=== PATIENT | female | born 1960 | race Caucasian/White ===

== ENCOUNTER → 2023-08-30 06:50 | Outpatient (REF) | payer BC, SELFPAY ==
[2023-08-30 09:59] LABS: % Basophils 0.5 % (0-2); % Eosinophils 3.5 % (0-6); % Immature Granulocytes 0.3 % (0-0.5); % Neutrophils 53.7 % (42.2-75.2); Absolute Eosinophils 0.2 10^3/uL (0-0.7); Absolute Monocytes 0.4 10^3/uL (0.1-0.6); Absolute Neutrophils 3.1 10^3/uL (1.4-6.5); Hemoglobin 14.5 g/dL (12.0-16.0); Mean Corpuscular Hgb 28.8 pg (27.0-31.0); Mean Corpuscular Volume 87.3 fL (81.0-99.0); Mean Platelet Volume 10.4 fL (7.4-10.4); Nucleated Red Blood Cells % 0 %; Platelet Count 256 10^3/uL (130-400); Red Blood Cell Count 5.04 10^6/uL (4.20-5.40); Red Cell Dist. Width 13.2 % (11.5-14.5); White Blood Cell Count 5.7 10^3/uL (4.8-10.8)
[2023-08-30 10:29] LABS: ALT (SGPT) 36 U/L (0-35); AST (SGOT) 38 U/L (14-36); Alkaline Phosphatase 94 U/L (38-126); Blood Urea Nitrogen 12 mg/dl (7-17); Calcium 9.3 mg/dl (8.4-10.2); Carbon Dioxide 29 mmol/L (22-30); Chloride 104 mmol/L (98-107); Glucose 115 mg/dl (70-99); HDL Cholesterol 56 mg/dl; LDL Cholesterol, Calculated 91 mg/dl; Potassium 4.3 mmol/L (3.5-5.1); Sodium 141 mmol/L (135-145); Total Bilirubin 0.7 mg/dl (0.2-1.3); Total Cholesterol 159 mg/dl (50-199); Total Protein 7.3 g/dl (6.3-8.2); Triglyceride 63 mg/dl (10-149); Very Low Density Lipoprotein 12 mg/dl (0-30); eGFR > 60.00
[2023-08-30 10:45] LABS: Free T4 1.79 ng/dl (0.78-2.19)
[2023-08-30 10:59] LABS: TSH 9.42 uIU/ml (0.47-4.68)
[2023-08-30 13:11] LABS: Glycohemoglobin (HgbA1c) 6.3 % (4.0-5.6)
== END ==
LOC: HWLAB 06:50
PROVIDERS: ATTENDING PHYSICIAN Physician Assistant Medical
DX: E03.8 Other specified hypothyroidism (principal); E04.1 Nontoxic single thyroid nodule; R73.01 Impaired fasting glucose; E66.01 Morbid (severe) obesity due to excess calories; Z00.01 Encounter for general adult medical examination with abnormal findings
CPT/HCPCS: 36415; 80053; 80061; 83036; 84439; 84443; 85025

== ENCOUNTER → 2023-11-19 06:38 | Outpatient (REF) | payer BC, SELFPAY ==
[2023-11-19 10:18] LABS: Free T4 2.14 ng/dl (0.78-2.19)
[2023-11-19 10:32] LABS: TSH 2.19 uIU/ml (0.47-4.68)
== END ==
LOC: HWLAB 06:38
PROVIDERS: ATTENDING PHYSICIAN Physician Assistant Medical
DX: E03.8 Other specified hypothyroidism (principal)
CPT/HCPCS: 36415; 84439; 84443

== ENCOUNTER 2024-08-25 20:25 | Inpatient (IN) | payer BC, SELFPAY ==
[2024-08-25] VITALS (19 sets, daily range): BP systolic 92–178; BP diastolic 61–124; PULSE 2–132; BMI 65.9
[2024-08-25] MEDS: DECADRON 8 MG IV (17:08)
[2024-08-25] MEDS: DUONEB 3 ML INH ×3 (17:09→22:01)
[2024-08-25 17:24] LABS: Venous Blood Gas B.E. -10.5 mmol/L (-4 to +4); Venous Blood Gas HCO3 21.3 mmol/L (22-27); Venous Blood Gas O2 Sat % 77.5 %; Venous Blood Gas pO2 58 mmHg (30-50)
[2024-08-25 17:25] LABS: % Basophils 0.6 % (0-2); % Eosinophils 1.7 % (0-6); % Immature Granulocytes 0.4 % (0-0.5); % Lymphocytes 48.2 % (20.5-51.1); % Monocytes 7.4 % (1.7-9.3); % Neutrophils 41.7 % (42.2-75.2); Absolute Basophils 0.1 10^3/uL (0-0.2); Absolute Eosinophils 0.2 10^3/uL (0-0.7); Absolute Lymphocytes 4.6 10^3/uL (1.2-3.4); Absolute Monocytes 0.7 10^3/uL (0.1-0.6); Hematocrit 53.9 % (37.0-47.0); Hemoglobin 17.1 g/dL (12.0-16.0); Mean Corp Hgb Conc. 31.7 g/dL (33.0-37.0); Mean Corpuscular Hgb 29.1 pg (27.0-31.0); Mean Corpuscular Volume 91.8 fL (81.0-99.0); Nucleated Red Blood Cells % 0 %; Platelet Count 290 10^3/uL (130-400); Red Blood Cell Count 5.87 10^6/uL (4.20-5.40); Red Cell Dist. Width 12.6 % (11.5-14.5); White Blood Cell Count 9.5 10^3/uL (4.8-10.8)
[2024-08-25 17:27] LABS: Venous Blood Gas pCO2 72 mmHg (35-48); Venous Blood Gas pH 7.08 (7.32-7.43)
[2024-08-25] MEDS: CARDIZEM 5 MG IV (17:30)
[2024-08-25 17:32] LABS: COVID-19 Antigen Negative (Negative)
[2024-08-25 17:34] LABS: ALT (SGPT) 37 U/L (0-35); AST (SGOT) 41 U/L (14-36); Alkaline Phosphatase 96 U/L (38-126); Blood Urea Nitrogen 10 mg/dl (7-17); Calcium 9.8 mg/dl (8.4-10.2); Carbon Dioxide 23 mmol/L (22-30); Chloride 102 mmol/L (98-107); Estimated Creatinine Clearance 98 ml/min; Glucose 203 mg/dl (70-99); Potassium 4.3 mmol/L (3.5-5.1); Sodium 141 mmol/L (135-145); Total Bilirubin 0.8 mg/dl (0.2-1.3); eGFR > 60.00
[2024-08-25 17:45] LABS: Troponin I < 0.012 ng/ml
--- NOTE | 2024-08-25 17:46 | ED.GENMED ---
History of Present Illness
General
Chief Complaint: Breathing Problem
Time Seen by Provider: 08/25/24 17:22
History of Present Illness
History of Present Illness:
Patient is a 64-year-old woman with history of asthma presenting to the emergency department respiratory distress. Patient states for the past 4 days she has had chills cough with deep breathing. Took her inhaler without relief. No history of
admissions for asthma. Denies any chest pain. No history of blood clots. No leg swelling. No hemoptysis.
Phy Exam
Physical Exam
Physical Exam:
GENERAL: Severe respiratory distress, cyanotic
HEENT: normocephalic, extraocular movements intact, moist oral mucosa
NECK: normal inspection
RESPIRATORY: Severe respiratory distress, audible wheezing, increased work of breathing, coarse breath sounds right worse than left
CARDIOVASCULAR: Tachycardic rate
ABDOMEN/: soft, non-distended, non-tender to palpation, no rebound or guarding
EXTREMITIES: non-tender, no edema/swelling
NEUROLOGIC: awake and alert, moves all extremities
SKIN: warm
Scores
Heart Failure Risk
Heart Failure Risk Score: Not Applicable
Sepsis
Sepsis Screening
Sepsis Assessment: Severe Sepsis
Sepsis Screening: Lactate >2mmol/L and Need for mechanical ventilation or BiPAP
Sepsis Screen
Sepsis Screen: Severe Sepsis
Date: 08/25/24
Time: 18:50
Course
Orders/Labs/Results
Orders:
Orders
08/25/24 17:00
Electrocardiogram (*1) Urgent
Reason for Study: Shortness of Breath
08/25/24 17:01
EKG- Treatment ONCE
08/25/24 17:03
Dexamethasone Sod Phosphate [Decadron] 8 mg .ROUTE .STK-MED ONE
08/25/24 17:04
Portable Chest Xray [CR Chest Portable - 1 View] Urgent
Comment:
Reason For Exam: resp distress
Reason Study Needs to be Portable: Patient Unstable
08/25/24 17:07
COVID-19 Antigen Urgent
Source: Nasal Swab
Complete Blood Count/With Diff Urgent
Comprehensive Metabolic Panel Urgent
NT-proBNP Urgent
Comment: ADD ON
Troponin I Urgent
Venous Blood Gas Urgent
%Oxygen/Room Air: 100
Comment: 15 L
Influenza A+B Rapid Molecular Urgent
LETTY Source: Nasal Swab
Specimen Description:
08/25/24 17:08
Dexamethasone Sod Phosphate [Decadron] 8 mg IV NOW STA
08/25/24 17:09
Ipratropium/Albuterol Sulfate [Duoneb] 3 ml INH R NOW ONE
08/25/24 17:10
Ipratropium/Albuterol Sulfate [Duoneb] 3 ml INH R NOW ONE
08/25/24 17:24
Diltiazem HCl [Cardizem] 10 mg IV NOW STA
08/25/24 17:30
Diltiazem HCl [Cardizem] 5 mg IV NOW STA
08/25/24 17:35
Lactic Acid Urgent
08/25/24 17:42
Add On- LAB Urgent
Tests Added?: bnp
08/25/24 17:52
Venous Blood Gas Stat
%Oxygen/Room Air: 100
Comment: Bipap
08/25/24 18:36
Venous Blood Gas Stat
%Oxygen/Room Air: 100
Comment: BiPap
08/25/24 18:55
Azithromycin 500 mg/250 ml [Zithromax Infusion] 500 mg in 250 ml IV NOW
CefTRIAXone [Rocephin] 2,000 mg IV NOW STA
08/25/24 19:09
0.9% Sodium Chloride 500 ml [Nss] 500 ml IV BOLUS
Abnormal Lab Results
08/25/24 08/25/24 08/25/24
17:07 17:35 17:52
RBC 5.87 H 10^6/uL
(4.20-5.40)
Hgb 17.1 H g/dL
(12.0-16.0)
Hct 53.9 H %
(37.0-47.0)
MCHC 31.7 L g/dL
(33.0-37.0)
Absolute Lymphs (auto) 4.6 H 10^3/uL
(1.2-3.4)
Absolute Monos (auto) 0.7 H 10^3/uL
(0.1-0.6)
Neutrophils % 41.7 L %
(42.2-75.2)
VBG pH 7.08 L* 7.15 L*
(7.32-7.43) (7.32-7.43)
VBG pCO2 72 H* mmHg 73 H* mmHg
(35-48) (35-48)
VBG pO2 58 H mmHg 57 H mmHg
(30-50) (30-50)
VBG HCO3 21.3 L mmol/L
(22-27)
Glucose 203 H mg/dl
(70-99)
Lactic Acid 3.9 H mmol/L
(0.7-2.0)
AST 41 H U/L
(14-36)
ALT 37 H U/L
(0-35)
Total Protein 9.0 H g/dl
(6.3-8.2)
08/25/24
18:36
RBC
Hgb
Hct
MCHC
Absolute Lymphs (auto)
Absolute Monos (auto)
Neutrophils %
VBG pH 7.21 L
(7.32-7.43)
VBG pCO2 61 H mmHg
(35-48)
VBG pO2 60 H mmHg
(30-50)
VBG HCO3
Glucose
Lactic Acid
AST
ALT
Total Protein
08/25/24 17:07
08/25/24 17:07
Vital Signs
Initial and Last Documented VS:
Initial Vital Signs
Pulse Resp BP Pulse Ox
145 35 159/111 100
08/25/24 17:02 08/25/24 17:02 08/25/24 17:02 08/25/24 17:02
Last Documented Vital Signs
Temp Pulse Resp BP Pulse Ox
99.5 F 143 28 118/88 98
08/25/24 17:11 08/25/24 18:18 08/25/24 18:20 08/25/24 18:18 08/25/24 18:20
MDM/Problems Addressed
Differential Diagnosis Includes:
Patient is a 64-year-old woman history of asthma presenting to the emergency department with severe respiratory distress. On arrival patient was cyanotic in severe respiratory distress with oxygen saturation in the 60s on room air. Patient
immediately brought back to room 41 and placed on nonrebreather with nebulizers treatment. Will give steroids as well. Stat portable chest x-ray completed per my interpretation could be interstitial pneumonia versus pulmonary edema though less
likely as patient has been having infectious signs or symptoms for the past few days. In addition patient with a tachycardic rate in the 150s. I did obtain EKG per my interpretation was wide-complex could be atrial fibrillation with block versus
ventricular tachycardia. I did discuss with Dr. Winkler from cardiology who states that it is likely SVT with block and to try diltiazem. I did slow down patient's heart rate with 5 mg IV diltiazem to the 120s. Repeat EKG consistent with left bundle
branch and sinus tach. Will hold off on further rate control as patient could be septic as well from the pneumonia. Will give small amount of fluids to see how patient responds.
Received a critical call regarding patient's VBG. She is in respiratory acidosis. Will trial BiPAP. However patient is becoming slightly more tired. She is a full code. Will recheck VBG and patient's mental status to see if we should go
towards intubation or keep patient on BiPAP. Patient is white count is normal. Will give antibiotics for pneumonia.
615p: Repeat VBG does show slight improvement in her pH though CO2 remains the same. She is on BiPAP settings 20/5 and is pulling more than 500 on tidal volume.. On reassessment patient is resting with her eyes closed though awakes to verbal.
States that she feels better. Will obtain 1 more VBG to make sure patient is improving though clinically patient appears to be improving.
630p: On reassessment patient continues to pull great tidal volumes. She is resting comfortably. Her respiratory rate has decreased.
645p: Patient appears much more comfortable. She is able to speak in full sentences. She states her breathing has improved. Repeat VBG does show significant improvement.
718p: On reevaluation patient is much more alert. Her heart rate has also improved. She has been improving for the last hour so will discuss with the hospitalist for admission.
*Critical Care Note
Total Time (30-74mins, 75-104mins- exclusive of procedures): 55
comment:
Critical care statement: A total of 55 minutes of critical care time was provided for this patient. This includes management of unstable vital signs, evaluation of the patient at bedside, reviewing the patient's pertinent medical records, ordering
and reviewing studies, arranging urgent treatment with development of a management plan, evaluating patient's response to treatment, frequent reassessment, and discussion with consultants. This time was separate from time utilized to perform the
aforementioned documented procedures.
ED Attending Note
-
Portions of this chart may have been created with voice recognition software.� Occasional wrong word or��sound alike� substitutions may have occurred due to the inherent limitations of voice recognition software.
Discharge Plan
Departure
Patient Disposition: Admit
Date of Disposition: 08/25/24
Time of Disposition: 19:18
Presentation/result/management discussed w/ accepting MD/DO: Hospitalist
Discharge Problem:
Pneumonia, Asthma exacerbation
Prescriptions:
No Action
lisinopril 30 mg Tablet
30 mg PO DAILY
levothyroxine 200 mcg Tablet
200 mcg PO DAILY
Referrals:
UNKNOWN - PT DOES,NOT KNOW [Unknown Provider] -
Interventions
Interventions:
*Risk Screen - Suicide Last Done: 08/25/24 17:02
*General Assessment Last Done: 08/25/24 17:02
*Neglect/Abuse Screening Last Done: 08/25/24 17:02
*ED- Fall Risk Assessment Last Done: 08/25/24 17:11
*ED COVID-19 Vaccine History Last Done: 08/25/24 17:22
ED- Cardiac Assessment Last Done: 08/25/24 17:15
ED- Pulmonary Assessment Last Done: 08/25/24 17:15
Discharge Date and Time
Print Language: KOSOVAN
[2024-08-25 17:54] LABS: Lactic Acid 3.9 mmol/L (0.7-2.0)
[2024-08-25 18:08] LABS: Venous Blood Gas B.E. -5.6 mmol/L (-4 to +4); Venous Blood Gas HCO3 25.4 mmol/L (22-27); Venous Blood Gas O2 Sat % 81.5 %; Venous Blood Gas pO2 57 mmHg (30-50)
[2024-08-25 18:08] LABS: NT-proBNP 30.7 pg/ml
[2024-08-25 18:10] LABS: Venous Blood Gas pCO2 73 mmHg (35-48); Venous Blood Gas pH 7.15 (7.32-7.43)
[2024-08-25 18:43] LABS: Venous Blood Gas pCO2 61 mmHg (35-48)
[2024-08-25 18:48] LABS: Venous Blood Gas B.E. -4.5 mmol/L (-4 to +4); Venous Blood Gas HCO3 24.4 mmol/L (22-27); Venous Blood Gas pH 7.21 (7.32-7.43); Venous Blood Gas pO2 60 mmHg (30-50)
[2024-08-25 18:49] LABS: Venous Blood Gas O2 Sat % 84.3 %
[2024-08-25] MEDS: ROCEPHIN 2000 MG IV (19:15)
[2024-08-25] MEDS: ZITHROMAX INFUSION 250 IV (19:15)
[2024-08-25] MEDS: NSS 500 IV (19:16)
--- NOTE | 2024-08-25 19:34 | HPS.HSE ---
Family Physician
-
Family Physician: Hannah Mcgee PA-C
Chief Complaint
-
Shortness of Breath
History of Present Illness
Patient is a 64 y/o female oast medical history of hypertension, hypothyroidism and mild intermittent asthma who presents with shortness of breath. Patient reports increasing shortness of breath over the past 4-5 days. She states the people who
reside in this apartment below her have been smoking which has been coming up into her apartment which she thinks triggered an asthma exacerbation. She has been using her albuterol rescue inhaler without improvement in her symptoms. She reports
cough that is productive of mucus. She reports associated chills. Upon arrival to the emergency department patient was noted to be 'purple' with a pulse ox of 65% on room air. Upon my evaluation patient is now on BiPAP with significant
improvement in her respiratory status.
Medical History
Past Medical History
Past Medical History: Reports Other
Additional Past Medical History:
Essential Hypertension
Hypothyroidism
Mild Intermittent Asthma
Past Surgical History: Reports None
Social History
Tobacco: Non-smoker
Family History
Family History: Not pertinent
Allergies / Home Medications
Allergies reflects when Allergies were last updated in [facility].
Home Medications with original date entered in [facility]
Allergy/Medication List:
Allergies
Allergy/AdvReac Type Severity Reaction Status Date / Time
No Known Allergies Allergy Verified 08/25/24 17:00
Home Medications
levothyroxine 200 mcg tablet 200 mcg PO DAILY 08/25/24
lisinopril 30 mg tablet 30 mg PO DAILY 08/25/24
Review of Systems
-
A 12 point ROS was completed and negative except as noted: Yes
Constitutional: Reports Chills
Respiratory: Reports Cough and Trouble Breathing
Cardiac: Denies Chest Pain or Palpitations
Physical Exam
Vital Signs
Vital Signs
Temp Pulse Resp BP Pulse Ox
99.5 F 130 25 105/71 100
08/25/24 17:11 08/25/24 19:15 08/25/24 19:20 08/25/24 19:15 08/25/24 19:21
Physical Exam
General: Comfortable, Conversant and Morbidly Obese
HEENT: Anicteric, Moist mucous membranes and Oxygen (BiPAP)
Respiratory: Wheezes and Other (Coarse Breath Sounds)
Cardiac: S1/S2, Regular Rhythm and Tachycardia
GI: Soft and Non Tender
Rectal: Deferred by Provider
Musculoskeletal: No Clubbing and No Cyanosis
Skin: Warm and Dry
Neuro: Awake, Alert, Oriented and Nonfocal/grossly intact
Psych: Calm
Laboratory Results
-
08/25/24 17:07
08/25/24 17:07
Laboratory Results
Lactic Acid 3.9 mmol/L (0.7-2.0) H 08/25/24 17:35
Total Bilirubin 0.8 mg/dl (0.2-1.3) 08/25/24 17:07
AST 41 U/L (14-36) H 08/25/24 17:07
ALT 37 U/L (0-35) H 08/25/24 17:07
Alkaline Phosphatase 96 U/L (38-126) 08/25/24 17:07
Troponin I < 0.012 ng/ml 08/25/24 17:07
Data Reviewed
-
Lab Data: Labs Reviewed by me
Impression/Plan
-
Acute Hypoxic / Hypercarbic Respiratory Failure
Acute Asthma Exacerbation
Community Acquired Pneumonia
-Admit to IMU on BiPAP
-Consult Pulmonary
-Check VBG later this evening and attempt to wean off BiPAP
-Continue DuoNeb QID and PRN
-Continue Decadron 4mg q8H
-Continue ceftriaxone and doxycycline
-Check sputum culture, strep and legionella antibiotics
Abnormal ECG
-Initial ECG concerning for wide complex tachycardia
-Repeat ECG appears more consistent with sinus tachycardia with left bundle branch block
-ED reviewed with Cardiology
-Monitor on Telemetry
Hyperglycemia
-Outpatient notes indicate impaired fasting glucose
-Check HgbA1c
-Continue diabetic diet
-Suspect sugars will run high due to steroids
-Monitor sugars and continue coverage insulin
Essential Hypertension
-BP running on the low side
-Hold lisinopril for now
Hypothyroidism
-Continue levothyroxine
Morbid Obesity due to Excess Calories
-Affects all aspects of care
DVT proph: Lovenox
Code Status: Full Code
[2024-08-25 20:41] LABS: Magnesium 2.2 mg/dl (1.6-2.3)
[2024-08-25 21:20] LABS: Venous Blood Gas B.E. -1.4 mmol/L (-4 to +4); Venous Blood Gas HCO3 24.8 mmol/L (22-27); Venous Blood Gas O2 Sat % 96.2 %; Venous Blood Gas pCO2 46 mmHg (35-48); Venous Blood Gas pH 7.34 (7.32-7.43); Venous Blood Gas pO2 146 mmHg (30-50)
--- NOTE | 2024-08-25 22:33 | W.PN.UPDATE ---
Update Note
Progress Note Update
Pt was seen and examined. I agree with H&P documentation with attending attestation to follow:
Comment:
Briefy this is a 64yo F wtih PMH HTN, Hypothyroidism, Asthma (mild-intermittent), Class III Obesity who presents to ER with SOB/Wheezing/Cough since . Pt reports worsening symptoms since her neighbors below her apartment have been smoking.
Symptoms worsened today while at work. Pt went outside to her care to get fresh air but felt worse prompting ER visit. +cough with yellow sputum. Denies F/C, Dizziness/LH, CP, Palps, Abd Pain, N/V/D/C, Dysuria, Calf or Leg Pain.
SHx: Left Knee arthroscopy
SocHx: Denies T/A/D. Uses no ambulatory aids.
FHx: Mom wtih DM. Father with DM/CAD
Physical Exam
General: Comfortable, On Bipap 20/5
HEENT: Anicteric, Moist mucous membranes and Oxygen (BiPAP)
Respiratory: Wheezes and Other (Coarse Breath Sounds)
Cardiac: S1/S2, Regular Rhythm and Tachycardia
GI: Soft and Non Tender, ND. +BS.
Rectal: Deferred by Provider
Musculoskeletal: No Clubbing and No Cyanosis
Skin: Warm and Dry, nondiaphoretic.
Neuro: AAOx3
Psych: Calm
Assessment/Plan
Acute Asthma Exacerbation
CAP
Acute Hypoxic / Hypercapnic Resp Failure
- ABG 7./. Sat 65% RA on presentation. Marked improvement on Bipap
- CXR: Increased reticulonodular markings throughout both lungs. Cardiomegaly. Main differential considerations of interstitial edema and/or bilateral interstitial pneumonia. No evidence for significant pleural effusions bilaterally on this portable
AP exam.
- Continue Decadron 4mg IV Q8h, wean as tolerated
- Continue Rocephin. Change azithro to doxy given initial EKG findings
- Check Sputum culture, strep, legionella
- Consult Pulm
Abnormal EKG / LBBB - Initial EKG with concern for wide complex tachycardia. Repeat EKG with ST, LBBB. No priors for comparison. EKG reviewed by cardio. HS Trop Neg. Suspect finding is chronic. Check lipids/a1c. Consider TTE. Defer further workup to
cardio consultation.
Hyperglycemia - Check A1C. Diabetic Diet. SSI/accuchecks. Previous hx impaired fasting glucose.
HTN - Lisinopril held for soft BP.
Hypothyroidism - Continue home synthroid
Class III Obesity - BMI 65.8. Encourage diet/exercise/wt loss. Continue life style mods.
Diet: Diabetic
DVT Ppx: Lovenox
Code Status: Full
[2024-08-25] MEDS: NSS 1000 IV (22:52)
[2024-08-25 23:17] LABS: Glucose - Point of Care 142 mg/dl (70-99)
[2024-08-25 23:30] LABS: Lactic Acid 1.4 mmol/L (0.7-2.0)
[2024-08-26] VITALS (24 sets, daily range): BP systolic 95–158; BP diastolic 60–134; PULSE 2–93
[2024-08-26] MEDS: DECADRON 4 MG IV ×3 (02:22→17:45)
[2024-08-26] MEDS: SYNTHROID 200 MCG PO (04:15)
--- NOTE | 2024-08-26 04:31 | PTCARENOTE ---
Patient admitted to ICU last evening. Patient aao x3 on admission, affect pleasant, able to make needs known. On BiPap 20/5 with 8 L. Patient tachycardic on admission, vss since that time. Lungs course throughout. Pox 95% on Bipap. NSR on the
monitor. Patient resting in bed with call rabago within reach.
[2024-08-26 05:40] LABS: Hematocrit 45.2 % (37.0-47.0); Hemoglobin 14.5 g/dL (12.0-16.0); Mean Corp Hgb Conc. 32.1 g/dL (33.0-37.0); Mean Corpuscular Hgb 28.6 pg (27.0-31.0); Mean Corpuscular Volume 89.2 fL (81.0-99.0); Mean Platelet Volume 10.2 fL (7.4-10.4); Platelet Count 224 10^3/uL (130-400); Red Blood Cell Count 5.07 10^6/uL (4.20-5.40); Red Cell Dist. Width 12.8 % (11.5-14.5); White Blood Cell Count 5.3 10^3/uL (4.8-10.8)
[2024-08-26 05:58] LABS: Blood Urea Nitrogen 19 mg/dl (7-17); Calcium 8.7 mg/dl (8.4-10.2); Carbon Dioxide 23 mmol/L (22-30); Chloride 108 mmol/L (98-107); Estimated Creatinine Clearance 80 ml/min; Glucose 166 mg/dl (70-99); HDL Cholesterol 35 mg/dl; LDL Cholesterol, Calculated 70 mg/dl; Potassium 4.6 mmol/L (3.5-5.1); Sodium 140 mmol/L (135-145); Total Cholesterol 118 mg/dl (50-199); Triglyceride 69 mg/dl (10-149); Very Low Density Lipoprotein 13 mg/dl (0-30); eGFR 56.81
--- NOTE | 2024-08-26 07:53 | W.PN.HOSP.TC ---
Today's Communication/Plan
-
IV steroids. Bronchodilators.
Assessment / Plan
Assessment / Plan
Physical exam:
General: Acutely ill
HEENT: Normocephalic, Atraumatic and Moist Mucous Membranes
Respiratory: Decreased breath sounds bilaterally; Negative Wheezes, scattered bilateral rhonchi noticed.
Cardiac: Regular Rhythm and S1/S2
GI: Soft, Nontender and Nondistended
Musculoskeletal: No Clubbing, No Cyanosis and No Edema
Neuro: Awake, Alert and Oriented
Psych: Calm
A/P:
Acute hypoxic hypercapnic respiratory failure:
Suspect etiology related to acute asthma exacerbation and morbid obesity with probably underlying RICO/OHS
Transitioned from BiPAP to oxygen supplementation today
On IV steroids, dexamethasone 4 mg IV every 8
Pulmonary on consult
Discussed with boyfriend at bedside
Probable pneumonia:
Seen chest x-ray and radiology reports interstitial densities but most likely technique and body habitus contributing
No fevers or leukocytosis
On antibiotics, ceftriaxone 1 g daily and oral doxycycline 100 mg twice a day, but seems less likely acute infection- low threshold to discontinue over the next 24 hours
Wide-complex regular tachycardia:
Suspected sinus tachycardia with underlying left bundle branch block
school lunch monitor
Cardiology on consult
Plan for echocardiogram
Check TSH
Repeating EKG
Increased lactate:
Improved
3.9--> 1.4
Sore throat:
Cepacol as needed
DIGNA:
Creatinine 1.1
Baseline creatinine 0.7
Avoid nephrotoxic
Monitor renal function
Hyperglycemia/prediabetes:
Hemoglobin A1c 6.1
Hypothyroidism:
Continue Synthroid but adjustment might be needed
Update TSH and free T4 today
Hypotension:
Improvement noticed
Held antihypertensives upon admission but will need to restart down the road
Hypertension:
Holding medication as above
Will restart and adjust as needed
Concerns for RICO/OHS:
Sleep testing as outpatient
Pulmonary eval for noninvasive ventilation if needed
Morbid obesity:
Will need lifestyle changes modifications probably evaluation for bariatric surgery as outpatient
DVT prophylaxis:
Lovenox SQ
CODE STATUS:
Full code
Total time spent on today's encounter was 52 minutes which included time spent in counseling the patient/family regarding diagnosis and treatment plan as listed above, goals of care, and symptom management. Case was discussed with nursing staff,
specialists, and care coordinators/case management. All labs and imaging personally reviewed by me. Remainder the time spent in detailed review of previous records, lab data, imaging, and other medical provider documentation.
Anticipated Discharge: 24 - 48 hours
Subjective/Interval History
-
Date of Service: August 26, 2024
Patient with shortness of breath although improved. Patient has cough and unable to expectorate much. Denies chest pain. On supplemental oxygen. Complains of sore throat. Afebrile
Objective Data
-
Labs:
Laboratory Results
08/26/24 08/26/24
05:17 05:18
WBC 5.3
Hgb 14.5
Hct 45.2
Plt Count 224 D
Sodium 140
Potassium 4.6
Chloride 108 H
Carbon Dioxide 23
BUN 19 H
Creatinine 1.1 H
Glucose 166 H
Calcium 8.7
Vital Signs:
Vital Signs
Temp Pulse Resp BP Pulse Ox
98.6 F 82 18 141/79 96
08/26/24 03:10 08/26/24 05:30 08/26/24 05:30 08/26/24 04:58 08/26/24 05:30
[2024-08-26] MEDS: DUONEB 3 ML INH ×4 (08:12→19:26)
[2024-08-26] MEDS: VIBRAMYCIN 100 MG PO ×2 (08:59→20:03)
[2024-08-26] MEDS: MUCINEX 600 MG PO ×2 (08:59→20:03)
[2024-08-26] MEDS: NOVOLOG FLEXPEN-LOW RESISTANCE SC (09:07)
--- NOTE | 2024-08-26 09:07 | CON.PUL ---
Consultation
Consultation Request
Date/Time Consultation Requested: 08/26/24
Date/Time Consultation Performed: 08/26/24
Performing Provider: Geo
Reason for Consultation: Asthma
Medical History
-
History of Present Illness:
Patient is a 64-year-old female with previous history of hypertension, hypothyroidism, asthma, morbid obesity presenting to ER with shortness of breath. Her she feels her breathing had worsened over the past 4 to 5 days, she feels she was
triggered by smoking in her apartment building. She has been using her albuterol rescue inhaler without improvement in her complaints. She does report some coughing with productive mucus and some chills. Upon arrival to the ER patient was noted
to be cyanotic with a pulse ox of 65% on room air. ABG obtained with result of , she was placed on BiPAP with improvement in her respiratory status.
Never seen pulmonary before, has history of lifelong asthma. Only ever on albuterol PRN.
Never had PFTs.
Never smoker.
Past Medical History
Past Medical History: Other (see list below)
Social History
Tobacco: Non-smoker
Alcohol: None
Drug: None
Allergies / Home Medications
Allergies
Allergy/AdvReac Type Severity Reaction Status Date / Time
No Known Allergies Allergy Verified 08/25/24 17:00
Home Medications
�Medication �Instructions �Recorded �Confirmed �Last Taken �Type
levothyroxine 200 mcg tablet 200 mcg PO DAILY Thyroid 08/25/24 08/25/24 Unknown History
lisinopril 30 mg tablet 30 mg PO DAILY Blood Pressure 08/25/24 08/25/24 Unknown History
Review of Systems
Vitals / Labs / Diagnostic Testing
Vital Signs
Temp Pulse Resp BP Pulse Ox
98.6 F 108 18 141/79 97
08/26/24 03:10 08/26/24 08:17 08/26/24 08:17 08/26/24 04:58 08/26/24 08:17
Lab Data
08/26/24 05:18
08/26/24 05:17
Microbiology
08/25/24 17:07 Nasal Swab Influenza Types A & B (YANIV) - Final
Negative for Influenza A & B, NAAT
Negative results must be combined with clinical observations
and patient history.
Nucleic Acid Amplification test (NAAT)performed on the
Detectent platform.
Diagnostic Testing:
Physical Exam
-
HEENT: Normocephalic, Anicteric and Moist Mucous Membranes
Cardiovascular: S1/S2 and Regular Rhythm
Respiratory: Clear (decreased overall) and Non-Labored Respirations
GI: Soft, Non Distended and Non Tender
Neurology: Awake, Alert, Oriented and No Motor Deficits
Skin: Warm, Dry and Good Color
General: Comfortable and Other (NAD, morbid obesity noted)
Assessment
-
Patient is a 64-year-old female with previous history of hypertension, hypothyroidism, asthma, morbid obesity presenting to ER with shortness of breath. Her she feels her breathing had worsened over the past 4 to 5 days, she feels she was
triggered by smoking in her apartment building. She has been using her albuterol rescue inhaler without improvement in her complaints. She does report some coughing with productive mucus and some chills. Upon arrival to the ER patient was noted
to be cyanotic with a pulse ox of 65% on room air. ABG obtained with result of , she was placed on BiPAP with improvement in her respiratory status. We are consulted for evaluation 08/26/24.
Acute hypoxic and hypercarbic respiratory failure requiring O2 and BiPAP
Acute asthma exacerbation
Super morbid obesity contributing to morbidity
DIGNA, creatinine 1.1 (BL 0.7)
Hyperglycemia
Lactic acidosis
Conditions present [employer]
Thyroid nodule
Hypothyroidism
Essential hypertension
Asthma, mild intermittent
Morbid obesity BMI 65
Plan
Currently saturating 95% on 2L, hypoxemia not confirmed on admission
Home O2 evaluation eventually
Prior history of lung disease is noted including lifelong asthma
Has never had PFTs or evaluation by pulmonary
Had only been on albuterol, using it daily, triggered by exposure in the home (past 15 years)
Will obtain department PFT for evaluation and start asthma management
She is started on IV steroids for AE asthma, can likely be transitioned off quickly, will change to prednisone in AM if improving
ABG reviewed as well (initial ->.)
Suspect patient has RICO/OHS, untreated-- notes snoring/EDS
Recommend OP sleep study -- we will arrange PSG SHERYL with BIPAP set up at home
She does not prefer the BIPAP or NIV in hospital
CXR/CT obtained indicating low lung volumes but no other acute findings
Less likely infection
Can check PCT when creat normal to stop abx
proBNP 30.7
No prior ECHO for review
Less likely CHF
Weight loss measures recommended
Obesity most likely contributing to respiratory symptoms
Will need outpatient pulmonary evaluation in our office for PFTs and 6MWT
Reviewed with patient
Risk factors assessed for underlying sleep disordered breathing also noted, recommend outpatient PSG/sleep evaluation
We will follow
Diagnostic Data
Chest X-Ray: 08/25/24- Increased reticulonodular markings throughout both lungs. Cardiomegaly. Main differential considerations of interstitial edema and/or bilateral interstitial pneumonia.
No evidence for significant pleural effusions bilaterally on this portable AP exam.
CT Scan:
Echo:
PFT's:
Reports and relevant images were personally reviewed.
Total time spent on this consultation __75__ minutes which includes review of history, physical exam, medications, laboratory data, personal review of imaging, extensive review of outpatient records, discussion with care team and respiratory therapy.
[2024-08-26 09:20] LABS: Glucose - Point of Care 145 mg/dl (70-99)
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
[2024-08-26] MEDS: ANESTHETIC LOZENGE 1 LOZENGE PO ×2 (11:43→17:45)
[2024-08-26 12:28] LABS: Glucose - Point of Care 158 mg/dl (70-99)
[2024-08-26 13:07] LABS: TSH Reflex To Free T4 0.38 uIU/ml (0.47-4.68)
[2024-08-26 13:17] LABS: Glycohemoglobin (HgbA1c) 6.1 % (4.0-5.6)
[2024-08-26] MEDS: NOVOLOG FLEXPEN-LOW RESISTANCE 1 UNITS SC ×2 (13:18→17:14)
[2024-08-26 13:36] LABS: Free T4 2.34 ng/dl (0.78-2.19)
--- NOTE | 2024-08-26 15:06 | CM ---
Patient with Hx Morbid obesity with Dx Acute hypoxic hypercapnic respiratory failure, probable PNA. O2 2L. Receiving IV Abx, IV decadron. Per nurse; A/O, OOB chair.
Met with patient who resides with her SETH Soria in a 2 story house with 1 ALLY.
The patient was independent in ADLs and ambulation.
She has no DME, prior VN or SNF.
PCP - Hannah Mcgee
Pharmacy - [facility]
Plan watch for O2 needs and patient's mobility.
Plan home.
[2024-08-26] MEDS: ZESTRIL 30 MG PO (15:55)
--- NOTE | 2024-08-26 16:06 | PTCARENOTE ---
Patients blood pressure is 153/93, heart rate in the 120s after transferring from the commode. Notified cardiology and Dr. Villarreal. Lisionpril 30mg administered. EKG completed, sinus tachycardia.
[2024-08-26] MEDS: TYLENOL 650 MG PO (17:13)
[2024-08-26 17:21] LABS: Glucose - Point of Care 171 mg/dl (70-99)
[2024-08-26] MEDS: LOVENOX 40 MG SC (17:45)
[2024-08-26] MEDS: STERILE WATER FOR INJECTION 10 ML IV (20:03)
[2024-08-26] MEDS: ROCEPHIN 1000 MG IV (20:04)
--- NOTE | 2024-08-26 21:07 | PTCARENOTE ---
assumed care of patient. pt is AAOx3, able to make needs known. VSS. ST BBB on the monitor. HR does increase when using the BSC. urine specimen down per order. on 2L NC, 95%. pt admits to SOB on exertion, moist non-productive cough. specimen cup
provided for sample. pt able to use BSC by self, just needs help with the wires. care ongoing.
[2024-08-26 21:49] LABS: Glucose - Point of Care 171 mg/dl (70-99)
[2024-08-27] VITALS (17 sets, daily range): BP systolic 104–175; BP diastolic 74–117; PULSE 2–86; BMI 65.2; BMI 62.8
[2024-08-27] MEDS: DECADRON 4 MG IV ×3 (01:33→22:00)
[2024-08-27] MEDS: SYNTHROID 200 MCG PO (04:34)
[2024-08-27 05:09] LABS: % Basophils 0.3 % (0-2); % Immature Granulocytes 0.4 % (0-0.5); % Lymphocytes 19.6 % (20.5-51.1); % Monocytes 7.4 % (1.7-9.3); % Neutrophils 72.3 % (42.2-75.2); Absolute Lymphocytes 1.3 10^3/uL (1.2-3.4); Absolute Monocytes 0.5 10^3/uL (0.1-0.6); Absolute Neutrophils 4.9 10^3/uL (1.4-6.5); Hematocrit 44.5 % (37.0-47.0); Hemoglobin 14.4 g/dL (12.0-16.0); Mean Corp Hgb Conc. 32.4 g/dL (33.0-37.0); Mean Corpuscular Hgb 28.9 pg (27.0-31.0); Mean Corpuscular Volume 89.2 fL (81.0-99.0); Mean Platelet Volume 10.5 fL (7.4-10.4); Nucleated Red Blood Cells % 0 %; Platelet Count 231 10^3/uL (130-400); Red Blood Cell Count 4.99 10^6/uL (4.20-5.40); Red Cell Dist. Width 12.6 % (11.5-14.5); White Blood Cell Count 6.8 10^3/uL (4.8-10.8)
[2024-08-27 05:29] LABS: Blood Urea Nitrogen 23 mg/dl (7-17); Calcium 9.3 mg/dl (8.4-10.2); Carbon Dioxide 27 mmol/L (22-30); Chloride 109 mmol/L (98-107); Estimated Creatinine Clearance 125 ml/min; Glucose 155 mg/dl (70-99); Sodium 142 mmol/L (135-145); eGFR > 60.00
[2024-08-27] MEDS: DUONEB 3 ML INH (07:24)
[2024-08-27] MEDS: NOVOLOG FLEXPEN-LOW RESISTANCE SC ×3 (07:46→17:42)
[2024-08-27] MEDS: VIBRAMYCIN 100 MG PO (07:52)
[2024-08-27] MEDS: ZESTRIL 30 MG PO (07:52)
[2024-08-27] MEDS: MUCINEX 600 MG PO ×2 (07:52→19:29)
[2024-08-27 07:55] LABS: Glucose - Point of Care 140 mg/dl (70-99)
--- NOTE | 2024-08-27 08:41 | W.PN.HOSP.TC ---
Today's Communication/Plan
-
Decrease steroids. Stop antibiotics. PFT. Discharge planning
Assessment / Plan
Assessment / Plan
Physical exam:
General: Acutely ill
HEENT: Normocephalic, Atraumatic and Moist Mucous Membranes
Respiratory: Decreased breath sounds bilaterally; Negative Wheezes, or rhonchi.
Cardiac: Regular Rhythm and S1/S2
GI: Soft, Nontender and Nondistended
Musculoskeletal: No Clubbing, No Cyanosis and No Edema
Neuro: Awake, Alert and Oriented, no neurological deficits
Psych: Calm
A/P:
Acute hypoxic hypercapnic respiratory failure:
Improving
Suspect etiology related to acute asthma exacerbation and morbid obesity with probably underlying RICO/OHS
Transitioned from BiPAP to oxygen supplementation yesterday--> today off oxygen
On IV steroids, dexamethasone 4 mg IV every 8--> changed to 4 mg every 12 hours today and switch to oral prednisone 40 mg p.o. daily tomorrow.
Pulmonary on consult
Plan for PFT today
Discussed with boyfriend at bedside
Transfer out of IMU today
Less likely pneumonia:
Seen chest x-ray and radiology reports interstitial densities but most likely technique and body habitus contributing
No fevers or leukocytosis
Discontinue antibiotics today and observe off antibiotics
Wide-complex regular tachycardia:
Suspected sinus tachycardia with underlying left bundle branch block
conveyor monitor
Cardiology on consult
Reviewed echocardiogram
Increased lactate:
Improved
3.9--> 1.4
Sore throat:
Cepacol as needed
DIGNA:
Creatinine 1.1
Baseline creatinine 0.7
Avoid nephrotoxic
Monitor renal function
Hyperglycemia/prediabetes:
Hemoglobin A1c 6.1
Hypothyroidism:
Continue Synthroid and repeat TFT outpatient
Update TSH and free T4 yesterday and abnormal--> discussed with endocrinology Dr Stefania Santos and recommended hold on changes and reeval as outpatient in light of steroids use.
Hypotension:
Improvement noticed
Restart antihypertensive
Hypertension:
Restarted MELONY inhibitor
Concerns for RICO/OHS:
Sleep testing as outpatient
Pulmonary eval for noninvasive ventilation if needed
Morbid obesity:
Will need lifestyle changes modifications probably evaluation for bariatric surgery as outpatient
DVT prophylaxis:
Lovenox SQ
CODE STATUS:
Full code
Anticipated Discharge: Within 24 hours
Subjective/Interval History
-
Date of Service: August 27, 2024
Patient feels better overall today. On room air. Afebrile
Objective Data
-
Labs:
Laboratory Results
08/27/24
04:44
WBC 6.8
Hgb 14.4
Hct 44.5
Plt Count 231
Sodium 142
Potassium 5.0
Chloride 109 H
Carbon Dioxide 27
BUN 23 H
Creatinine 0.7
Glucose 155 H
Calcium 9.3
Vital Signs:
Vital Signs
Temp Pulse Resp BP Pulse Ox
97.7 F 108 18 155/97 97
08/27/24 08:00 08/27/24 07:52 08/27/24 07:26 08/27/24 07:52 08/27/24 07:26
I&O
08/26/24 08/27/24 08/28/24
06:59 06:59 06:59
Intake Total 700 / 700
Output Total 750 / 750
Balance -50 / -50
--- NOTE | 2024-08-27 09:30 | W.PN.CARDCBS ---
Today's Communication / Plan
-
Echo stable
Outpt follow up for stress testing
Please recall if needed
Impression / Plan
-
.
Primary Shrimp Picker: none prior to admission
Assessment:
Presentation with SOB
Acute hypoxic respiratory failure, initially requiring bipap
Acute asthma exacerbation
CAP
Wide complex tachycardia - suspected ST with LBBB, unknown chronicity, new diagnosis
Morbid obesity
HTN
Hypothyroidism
Thyroid nodules
ECHO 08/26/24: preserved EF with no significant valve disease.
Plan:
-Patient presented with SOB and noted to have acute hypoxic respiratory failure secondary to acute asthma exacerbation and PNA.
-cardiology consulted as patient noted to have wide complex tachycardia. EKG appears to be consistent with sinus tachycardia with LBBB. no prior EKGs to compare in [facility] or [facility]. patient asymptomatic. denies known history of any cardiac issues or
rhythm issues. will review with EP.
Echo with preserved EF and no significant valve disease.
TSH 0.38, on synthroid management as per primary service
LBBB is new diagnosis and EF is preserved.
Pt will be reevaluated as outpt and be considered for Lexiscan nuclear stress as outpt.
Trop negative.
Cont pulm toilet and support as per primary service.
Lisinopril has been resumed. Monitor bps. Avoid BB with asthma
Outpt follow up arranged.
Please recall if needed.
Progress Note - Shrimp Picker
Subjective
Date of Service: August 27, 2024
Pt seen and examined. No cp. Breathing better.
Objective
Labs:
08/27/24 04:44
08/27/24 04:44
Labs
Hgb 14.4 g/dL (12.0-16.0) 08/27/24 04:44
Hct 44.5 % (37.0-47.0) 08/27/24 04:44
Plt Count 231 10^3/uL (130-400) 08/27/24 04:44
Sodium 142 mmol/L (135-145) 08/27/24 04:44
Potassium 5.0 mmol/L (3.5-5.1) 08/27/24 04:44
BUN 23 mg/dl (7-17) H 08/27/24 04:44
Creatinine 0.7 mg/dL (0.6-1.0) 08/27/24 04:44
Glucose 155 mg/dl (70-99) H 08/27/24 04:44
Troponins
08/25/24
17:07
Troponin I < 0.012
Vital Signs and I&O:
Vital Signs
Temp Pulse Resp BP Pulse Ox
97.7 F 108 18 155/97 94
08/27/24 08:00 08/27/24 07:52 08/27/24 07:26 08/27/24 07:52 08/27/24 08:48
Vital Signs
Temp Pulse Resp BP Pulse Ox
97.7 F 108 18 155/97 94
08/27/24 08:00 08/27/24 07:52 08/27/24 07:26 08/27/24 07:52 08/27/24 08:48
Intake & Output
08/25/24 08/26/24 08/27/24 08/28/24
06:59 06:59 06:59 06:59
Intake Total 700 / 700
Output Total 750 / 750
Balance -50 / -50
Physical Exam
Physical Exam
General: No acute distress, AAOX3
Neck: Negative JVD
Heart: Regular, Negative S3 positive S1/S2, Negative S4, No murmur
Lungs: CTA b/l, negative wheezes/rales/rhonchi
Abd: Morbid obesity. Positive BS, NT/ND, neg rebound/rigidity/guarding
Ext: Negative cyanosis/clubbing/edema
Neuro: nonfocal
--- NOTE | 2024-08-27 09:47 | CM ---
Patient seen at bedside
On room air
PLAN: Home, no needs anticipated
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
[2024-08-27] MEDS: DUONEB INH (11:21)
[2024-08-27 12:21] LABS: Glucose - Point of Care 126 mg/dl (70-99)
[2024-08-27] MEDS: SPIRIVA RESPIMAT 2.5 MCG INH (15:19)
[2024-08-27 17:31] LABS: Glucose - Point of Care 137 mg/dl (70-99)
[2024-08-27] MEDS: LOVENOX 40 MG SC (19:29)
[2024-08-27] MEDS: ADVAIR HFA 230/21 MCG INHALER 2 PUFF INH (19:53)
[2024-08-27 21:07] LABS: Glucose - Point of Care 131 mg/dl (70-99)
[2024-08-28] VITALS (7 sets, daily range): BP systolic 106–180; BP diastolic 93–121; BMI 64.2
[2024-08-28] MEDS: SYNTHROID 200 MCG PO (04:03)
[2024-08-28] MEDS: ADVAIR HFA 230/21 MCG INHALER 2 PUFF INH (06:23)
[2024-08-28] MEDS: SPIRIVA RESPIMAT 2.5 MCG 2 PUFF INH (06:23)
[2024-08-28 08:06] LABS: Glucose - Point of Care 126 mg/dl (70-99)
[2024-08-28] MEDS: NOVOLOG FLEXPEN-LOW RESISTANCE SC ×2 (09:00→13:30)
[2024-08-28] MEDS: ZESTRIL 30 MG PO (09:08)
[2024-08-28] MEDS: DELTASONE 40 MG PO (09:08)
[2024-08-28] MEDS: LOVENOX 40 MG SC (09:09)
[2024-08-28] MEDS: APRESOLINE 10 MG IV (09:59)
[2024-08-28] MEDS: XANAX 0.25 MG PO (09:59)
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
--- NOTE | 2024-08-28 11:06 | CM ---
Patient seen at bedside
patient transferred to 4th floor
On room air, inhalers
PLAN: home, no needs anticipated
[2024-08-28] MEDS: CARDIZEM CD 120 MG PO (11:21)
[2024-08-28] MEDS: MUCINEX PO (11:59)
[2024-08-28 13:28] LABS: Glucose - Point of Care 134 mg/dl (70-99)
--- NOTE | 2024-08-28 13:28 | W.PN.HOSP.TC ---
Today's Communication/Plan
-
Steroids. Blood pressure medications adjustments. Discharge planning
Assessment / Plan
Assessment / Plan
Physical exam:
General: Acutely ill
HEENT: Normocephalic, Atraumatic and Moist Mucous Membranes
Respiratory: Decreased breath sounds bilaterally; Negative Wheezes, or rhonchi.
Cardiac: Regular Rhythm and S1/S2
GI: Soft, Nontender and Nondistended
Musculoskeletal: No Clubbing, No Cyanosis and No Edema
Neuro: Awake, Alert and Oriented, no neurological deficits
Psych: Calm
A/P:
Acute hypoxic hypercapnic respiratory failure:
Improving
Suspect etiology related to acute asthma exacerbation and morbid obesity with probably underlying RICO/OHS
Transitioned from BiPAP to oxygen supplementation yesterday and subsequently off oxygen--> based on data she might need BiPAP as outpatient but we will defer to pulmonary.
Change steroids to oral
Pulmonary on consult
Status post PFT yesterday and show severe obstruction and moderate to severe restriction
Plan to discharge possibly later today or in a.m. depending on her clinical course
Hypertension:
Uncontrolled today--> adjustments being made and will reevaluate.
On lisinopril
Add Cardizem CD
IV hydralazine as needed
Xanax as needed
Less likely pneumonia:
Seen chest x-ray and radiology reports interstitial densities but most likely technique and body habitus contributing
No fevers or leukocytosis
Discontinued antibiotics yesterday on 08/27 and observe off antibiotics and doing well.
Wide-complex regular tachycardia:
Suspected sinus tachycardia with underlying left bundle branch block
classroom monitor
Cardiology on consult
Reviewed echocardiogram
Increased lactate:
Improved
3.9--> 1.4
Sore throat:
Cepacol as needed
DIGNA:
Creatinine 1.1
Baseline creatinine 0.7
Avoid nephrotoxic
Monitor renal function
Hyperglycemia/prediabetes:
Hemoglobin A1c 6.1
Hypothyroidism:
Continue Synthroid and repeat TFT outpatient
Update TSH and free T4 yesterday and abnormal--> discussed with endocrinology Dr Stefania Santos and recommended hold on changes and reeval as outpatient in light of steroids use.
Hypotension:
Improvement noticed
Restart antihypertensive
Hypertension:
Restarted MELONY inhibitor
Concerns for RICO/OHS:
Sleep testing as outpatient
Pulmonary eval for noninvasive ventilation if needed
Morbid obesity:
Will need lifestyle changes modifications probably evaluation for bariatric surgery as outpatient
DVT prophylaxis:
Lovenox 40 mg twice a day SQ due to morbid obesity
CODE STATUS:
Full code
Anticipated Discharge: Today
Subjective/Interval History
-
Date of Service: August 28, 2024
Patient less short of breath. No chest pain. Very anxious today. Patient upset that the inhalers were started at the same time by pulm
Objective Data
-
Vital Signs:
Vital Signs
Temp Pulse Resp BP Pulse Ox
98.2 F 112 22 164/102 93
08/28/24 11:00 08/28/24 11:06 08/28/24 11:00 08/28/24 11:06 08/28/24 11:00
I&O
08/27/24 08/28/24 08/29/24
06:59 06:59 06:59
Intake Total 700 / 700 480 / 480
Output Total 750 / 750
Balance -50 / -50 480 / 480
--- NOTE | 2024-08-28 14:55 | W.DCSUMMARY ---
Discharge Summary
Discharge Data
Date of Admission: 08/25/24
Date of Discharge: 08/28/24
Total time spent discharging patient (in min): 35
-
Pending Results: No
Hospital Course
Patient 64 years old female with history of hypertension, hypothyroidism, asthma, morbid obesity, presented to the hospital with shortness of breath and coughing. Patient presented with acute hypoxemic and hypercapnic respiratory failure and placed
on BiPAP and IV steroids and IV antibiotics. She also noticed with wide-complex tachycardia. Patient did improved over time and she was taken off BiPAP. Pulmonary cardiology were consulted. Cardiology felt that she had sinus tachycardia and this
was appropriate to her presentation. She had an echocardiogram that showed normal ejection fraction. Cardiology would like to see her outpatient for further ischemic outpatient workup. Pulmonary did PFTs on her while inpatient and it shows severe
obstructive disease and restrictive pattern. Pulmonary recommended steroids tapering course and inhalers upon discharge and also close follow-up as outpatient to arrange for sleep testing and probably noninvasive ventilation as outpatient. She did
have an episode of elevated blood pressure and her blood pressure medications require some adjustments adding some castration blockers. Her blood pressure has improved substantially but she will continue to follow-up blood pressure as outpatient.
She also required some anxiolytics but we will not continue as outpatient to avoid excessive sedation in light of her respiratory status. Otherwise, patient hemodynamically stable and she is eager to go home today. She will be discharged in stable
condition today.
Discharge duration: 35 minutes
Discharge Plan
-
Patient Disposition: Home (Routine Discharge)
Discharge Diagnosis/Procedures: Acute asthma exacerbation. Acute hypoxic and hypercapnic respiratory failure. Likely obstructive sleep apnea and obesity hypoventilation syndrome. Sinus tachycardia. Left bundle branch block. Increased lactic
acid. Acute kidney injury. Prediabetes mellitus. Hypothyroidism. Hypertension. Hypotension. Morbid obesity.
Diet: Low Cholesterol and Diabetic, Carb Controlled
Activity: As tolerated
Blood Work: Please PCP to order CBC, BMP within 1 week. Also recommend to repeat thyroid function test within 6 weeks.
Referrals:
Roopa Rhoades PA-C [Specified Professional Personl] - 10/27/24 4:00 pm (You have a cardiology follow-up appointment at the [place] office. Please call with questions)
Venecia Guardado, [Active] - in six weeks (PFT)
Hannah Mcgee PA-C [Family Provider] - in less than 1 week
Prescriptions:
New
diltiazem HCl 120 mg Capsule,Extended Release 24hr
120 mg PO DAILY 30 Days Qty: 30 0RF
albuterol sulfate 90 mcg/actuation Hfa Aerosol Inhaler
2 puff inhalation R Q4HPRN PRN (Reason: SOB/wheezing) 30 Days Qty: 6.7 0RF
fluticasone propion-salmeterol 45-21 mcg/actuation Hfa Aerosol Inhaler
2 puff inhalation R BID 30 Days Qty: 12 0RF
Spiriva Respimat 2.5 mcg/actuation Mist
2 puff inhalation R DAILY 30 Days Qty: 4 0RF
prednisone 10 mg Tablet
See Rx Instructions .ROUTE .COMPLEX Qty: 45 0RF
Rx Instructions:
Take By Mouth:
50 mg daily x3 days, 40 mg daily x3 days,
30 mg daily x3 days, 20 mg daily x3 days,
10 mg daily x3 days
Continued
lisinopril 30 mg Tablet
30 mg PO DAILY
levothyroxine 200 mcg Tablet
200 mcg PO DAILY
Discharge Orders:
Discharge Patient (As Directed); Ordered 08/28/24
Ordered By: Magan Villarreal
Discharge Date and Time
Discharge Date/Time: 08/28/24 16:33
Print Language: MALAYSIAN
== END 2024-08-28 16:33 | disposition home or self-care (01) | DRG 193 ==
LOC: 4 WEST ACU 20:25
PROVIDERS: Physician Assistant Medical; ADMITTING PHYSICIAN Hospitalist; ATTENDING PHYSICIAN Hospitalist; CONSULT PHYSICIAN Internal Medicine; CONSULT PHYSICIAN Internal Medicine Cardiovascular Disease; EMERGENCY PHYSICIAN Student in an Organized Health Care Education/Training Program; FAMILY PHYSICIAN Physician Assistant Medical
DX: J18.9 Pneumonia, unspecified organism (principal); J96.01 Acute respiratory failure with hypoxia; J96.02 Acute respiratory failure with hypercapnia; J45.21 Mild intermittent asthma with (acute) exacerbation; E66.2 Morbid (severe) obesity with alveolar hypoventilation; Z68.44 Body mass index [BMI] 60.0-69.9, adult; N17.9 Acute kidney failure, unspecified; E87.20 Acidosis, unspecified; I10 Essential (primary) hypertension; E03.9 Hypothyroidism, unspecified; I95.9 Hypotension, unspecified; Z11.52 Encounter for screening for COVID-19
CPT/HCPCS: 94727; 94729; 71045; 80048; 80053; 80061; 82805; 82962; 83036; 83605; 83735; 83880; 84439; 84443; 84484; 85025; 85027; 87070; 87205; 87449; 87502; 87811; 87899; 93005; 93306; 94060; 94640; 94660; 96374; 96375; 99291; Q9950

== ENCOUNTER → 2024-09-04 06:28 | Outpatient (REF) | payer BC, SELFPAY ==
[2024-09-04 09:58] LABS: ALT (SGPT) 73 U/L (0-35); AST (SGOT) 29 U/L (14-36); Albumin 3.6 g/dl (3.5-5.0); Alkaline Phosphatase 72 U/L (38-126); Blood Urea Nitrogen 17 mg/dl (7-17); Calcium 9.2 mg/dl (8.4-10.2); Carbon Dioxide 30 mmol/L (22-30); Chloride 108 mmol/L (98-107); Glucose 112 mg/dl (70-99); Potassium 3.9 mmol/L (3.5-5.1); Sodium 142 mmol/L (135-145); Total Bilirubin 1.3 mg/dl (0.2-1.3); Total Protein 6.6 g/dl (6.3-8.2); eGFR > 60.00
[2024-09-04 10:25] LABS: Hematocrit 47.8 % (37.0-47.0); Hemoglobin 15.3 g/dL (12.0-16.0); Mean Corpuscular Hgb 28.8 pg (27.0-31.0); Mean Corpuscular Volume 89.8 fL (81.0-99.0); Mean Platelet Volume 10.8 fL (7.4-10.4); Platelet Count 344 10^3/uL (130-400); Red Blood Cell Count 5.32 10^6/uL (4.20-5.40); White Blood Cell Count 14.6 10^3/uL (4.8-10.8)
[2024-09-04 11:07] LABS: % Basophils 0.2 % (0-2); % Eosinophils 1.6 % (0-6); % Immature Granulocytes 0.7 % (0-0.5); % Lymphocytes 39.9 % (20.5-51.1); % Monocytes 6.3 % (1.7-9.3); % Neutrophils 51.3 % (42.2-75.2); Absolute Eosinophils 0.2 10^3/uL (0-0.7); Absolute Immature Granulocytes 0.1 10^3/uL (0-0.05); Absolute Lymphocytes 5.8 10^3/uL (1.2-3.4); Absolute Monocytes 0.9 10^3/uL (0.1-0.6); Absolute Neutrophils 7.5 10^3/uL (1.4-6.5); Nucleated Red Blood Cells % 0 %
== END ==
LOC: HWLAB 06:28
PROVIDERS: ATTENDING PHYSICIAN Internal Medicine
DX: I10 Essential (primary) hypertension (principal); E03.9 Hypothyroidism, unspecified; E66.01 Morbid (severe) obesity due to excess calories; I44.7 Left bundle-branch block, unspecified; Z09 Encounter for follow-up examination after completed treatment for conditions other than malignant neoplasm; J96.01 Acute respiratory failure with hypoxia; J96.02 Acute respiratory failure with hypercapnia; J45.51 Severe persistent asthma with (acute) exacerbation
CPT/HCPCS: 36415; 80053; 85025

== ENCOUNTER → 2024-10-01 13:29 | Outpatient (REF) | payer BC, SELFPAY | LOC: DHSLP 13:29 | PROVIDERS: ATTENDING PHYSICIAN Internal Medicine; FAMILY PHYSICIAN Physician Assistant Medical | DX: G47.33 Obstructive sleep apnea (adult) (pediatric) (principal) | CPT/HCPCS: 95811 ==

== ENCOUNTER → 2024-10-23 06:48 | Outpatient (REF) | payer BC, SELFPAY ==
[2024-10-23 10:30] LABS: TSH 1.45 uIU/ml (0.47-4.68)
== END ==
LOC: HWLAB 06:48
PROVIDERS: ATTENDING PHYSICIAN Internal Medicine
DX: E03.9 Hypothyroidism, unspecified (principal)
CPT/HCPCS: 36415; 84439; 84443

== ENCOUNTER → 2025-01-12 07:21 | Outpatient (REF) | payer BC, SELFPAY | LOC: PET 07:21 | PROVIDERS: ATTENDING PHYSICIAN Physician Assistant | DX: I44.7 Left bundle-branch block, unspecified (principal); I10 Essential (primary) hypertension; R06.09 Other forms of dyspnea | CPT/HCPCS: 78431; A9555; J2785 ==